=== PATIENT | female | born 1960 | race Caucasian/White ===

== ENCOUNTER 2019-03-26 09:48 | Day surgery (SDC) | payer OTHER ==
[2019-03-26] MEDS ORDERED: PROPOFOL 60 ML (10:44)
[2019-03-26] MEDS ORDERED: LIDOCAINE 2% (SDV) 5 ML INJ (10:44)
[2019-03-26] MEDS ORDERED: FENTAnyl 50 MCG/ML VIAL IV (11:30)
[2019-03-26] MEDS ORDERED: ALBUTEROL 0.083% (NEB) 2.5 MG/3 ML AMP HHN (11:30)
[2019-03-26] MEDS ORDERED: ONDANSETRON 4 MG INJ IV (11:30)
[2019-03-26] MEDS ORDERED: ACETAMINOPHEN 500 MG TAB PO (11:30)
== END 2019-03-26 12:53 | disposition home or self-care (01) ==
LOC: GIL 09:48
DX: Z12.11 Encounter for screening for malignant neoplasm of colon (principal); K64.8 Other hemorrhoids; K21.9 Gastro-esophageal reflux disease without esophagitis; K31.7 Polyp of stomach and duodenum; I10 Essential (primary) hypertension
CPT/HCPCS: 43239; 88305; 88312